=== PATIENT | female | born 1985 | race Caucasian/White ===

== ENCOUNTER 2016-12-01 23:26 | Emergency (ER) | payer OTHER ==
[~2016-12-01] VITALS: Ht 177.8 cm; Wt 78.9 kg
[2016-12-01] MEDS ORDERED: ULTRAM 50MG TAB50 MG PO (23:54)
[2016-12-02] MEDS ORDERED: NORCO 5-325 TA1 EACH PO (01:16)
[2016-12-02 01:50] VITALS: BP 130/74
== END 2016-12-02 01:51 | disposition home or self-care (01) ==
LOC: ER 23:26
DX: S16.1XXA Strain of muscle, fascia and tendon at neck level, initial encounter (principal); V43.52XA Car driver injured in collision with other type car in traffic accident, initial encounter; Y93.I9 Activity, other involving external motion; Y92.488 Other paved roadways as the place of occurrence of the external cause; Y99.8 Other external cause status

== ENCOUNTER 2017-09-16 12:35 | Emergency (ER) | payer BC ==
[~2017-09-16] VITALS: Ht 157.5 cm; Wt 74.8 kg
[~2017-09-16 12:35] MED LIST: NORCO 5-325 TA1 EACH PO; NORFLEX100 MG PO; TRAMADOL 50 MG50 MG PO; ULTRAM 50MG TAB50 MG PO
[2017-09-16] MEDS ORDERED: MOBIC15 MG PO (13:29)
== END 2017-09-16 13:39 | disposition home or self-care (01) ==
LOC: ER 12:35
DX: M25.551 Pain in right hip (principal)